=== PATIENT | female | born 1960 ===

== ENCOUNTER 2017-01-27 10:45 | Day surgery (SDC) | payer MEDICAID ==
[2017-01-27] MEDS ORDERED: Lactated Ringer's 500 ML IV ONE (11:05)
[2017-01-27 11:23] VITALS: O2SAT 100
[2017-01-27] MEDS ORDERED: Midazolam 2 MG/2 ML VIAL ONE (12:01)
[2017-01-27] MEDS ORDERED: Propofol 10 mg/ml Inj (20 ML) ONE (12:01)
[2017-01-27 12:20] VITALS: TEMP 97
[2017-01-27 12:31] VITALS: BP 111/70; PULSE 73; RESP 15
== END 2017-01-27 12:42 | disposition home or self-care (01) ==
LOC: H.ENDO 10:45
PROVIDERS: ATTEND Internal Medicine Gastroenterology
DX: Z12.11 Encounter for screening for malignant neoplasm of colon (principal); K64.8 Other hemorrhoids; G43.909 Migraine, unspecified, not intractable, without status migrainosus; Z90.710 Acquired absence of both cervix and uterus; Z98.51 Tubal ligation status; Z82.49 Family history of ischemic heart disease and other diseases of the circulatory system; Z88.0 Allergy status to penicillin

== ENCOUNTER 2018-06-14 13:19 | Emergency (ER) | payer MEDICAID ==
[2018-06-14 13:45] VITALS: RESP 18; O2SAT 99
--- NOTE | 2018-06-14 14:55 | ED PDOC ---
HPI: Eye Injury/Pain Time Seen by Provider: 06/14/18 13:47 Chief Complaint (Nursing): Eye Problem Chief Complaint (Provider): Left orbital pain and swelling History Per: Patient, Hull Molder ([id number]) History/Exam Limitations: no limitations Onset/Duration Of Symptoms: Days Current Symptoms Are (Timing): Still Present Quality: Pressure Associated Symptoms: Pain, Swelling, Itching. denies: Decreased Vision, FB Sensation, Discharge From Eye Additional Complaint(s): 58 year old female presents to the ED for evaluation of left orbital pain and swelling. Patient states she had discomfort and itchiness last night. This morning the area around her eye was swollen and is tender to touch so she applied ice without any relief. 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 She describes the pain as pressure-like and "hot". She also admits she wears glasses, but denies use of contacts. Otherwise, patient denies fever/chills, foreign body sensation, changes in vision, trauma to the eye, pain with eye movement, mucus discharge, or any other complaints. PMD: clinic mysql dba: Dr. Zamudio ([facility]) Past Medical History Reviewed: Historical Data, Nursing Documentation, Vital Signs Vital Signs: Last Vital Signs Temp 98.2 F 06/14/18 13:43 Pulse 84 06/14/18 13:43 Resp 18 06/14/18 13:43 BP 120/75 06/14/18 13:43 Pulse Ox 99 06/14/18 13:43 - Medical History PMH: Arthritis - Surgical History Other surgeries: tubal ligation, hysterectomy - Family History Family History: States: Unknown Family Hx - Social History Current smoker - smoking cessation education provided: No - Home Medications Home Medications: Ambulatory Orders Medication Instructions Recorded RX: Clindamycin [Cleocin] 300 mg PO TID #21 cap 06/14/18 RX: Erythromycin 0.5% 1 applic OS Q4 #1 tube 06/14/18 [Erythromycin] RX: Naproxen 500 mg PO BID PRN #20 tab 06/14/18 - Allergies Allergies/Adverse Reactions: Allergies Allergy/AdvReac Type Severity Reaction Status Date / Time Penicillins Allergy RASH Verified 07/09/16 10:03 Review of Systems ROS Statement: Except As Marked, All Systems Reviewed And Found Negative Constitutional: Negative for: Fever Eyes: Positive for: Pain (left eye), Eyelid Inflammation (left eye). Negative for: Vision Change ENT: Negative for: Ear Pain, Throat Pain Cardiovascular: Negative for: Chest Pain Respiratory: Negative for: Cough, Shortness of Breath Neurological: Positive for: Headache. Negative for: Weakness, Numbness Physical Exam - Reviewed Nursing Documentation Reviewed: Yes Vital Signs Reviewed: Yes - Physical Exam Comments: GENERAL APPEARANCE: Patient is awake, alert, oriented x 3, in no acute distress, resting comfortably. HEART AND CARDIOVASCULAR: (-) irregularity CHEST AND RESPIRATORY: (-) rales, (-) rhonchi, (-) wheezes; breath sounds equal. Respirations even and nonlabored. NECK: Supple, FROM VISUAL ACUITIES: Left eye: 20/20; Right eye: 20/20; Bilateral: 20/20. LIDS & LASHES: (-) crusting of eyelashes (-) mucus discharge ORBIT: (+) edema, warmth, tenderness to the left lower eyelid and the inferior aspect of left eye orbit. PUPILS: Pupils equal and reactive. EOM's: Intact and painless LID EVERSION: (-) foreign body. CONJUNCTIVAE: (-) chemosis (-) conjunctival injection ANTERIOR CHAMBER: (-) foreign body (-) hyphema NEURO AND PSYCH: Mental status as above. Affect: appropriate. Gait: steady. Speech: clear. (-) aphasia - Laboratory Results Result Diagrams: 06/14/18 14:54 06/14/18 14:54 - ECG O2 Sat by Pulse Oximetry: 99 (RA) Pulse Ox Interpretation: Normal Medical Decision Making Medical Decision Making: Time: 1345 Initial impression: acute orbital pain and swelling, r/o orbital cellulitis Initial plan: Orbits/facials w/o contrast CT BMP CBC w/ differential Toradol 30mg IVP IV insertion Reevaluation 1520 PROCEDURE: CT ORBITS WITHOUT CONTRAST. HISTORY: r/o orbital cellulitis, left eye orbit COMPARISON: None available. TECHNIQUE: Axial CT images of the orbits were obtained. Coronal and sagittal reformats were generated. Radiation dose: Total exam DLP = 730.88 mGy-cm. This CT exam was performed using one or more of the following dose reduction techniques: Automated exposure control, adjustment of the mA and/or kV according to patient size, and/or use of iterative reconstruction technique. FINDINGS: RIGHT ORBIT: RIGHT BONY ORBIT: Normal. RIGHT INTRAORBITAL STRUCTURES: Globe: Normal. Extraocular muscles: Normal. Post septal space: Normal. Optic Nerve: Normal. Lacrimal Apparatus: Normal. RIGHT PRESEPTAL SOFT TISSUES: Normal LEFT ORBIT: LEFT BONY ORBIT: Normal. LEFT INTRAORBITAL STRUCTURES: Globe: Normal. Extraocular muscles: Normal. Post septal space: Normal Optic Nerve: Normal. . Lacrimal Apparatus: Normal. LEFT PRESEPTAL SOFT TISSUES: There is mild infraorbital and pre maxillary soft tissue swelling and subcutaneous fat stranding. No evidence of preseptal or postseptal cellulitis. OTHER: There fluid in the right sphenoid chamber. The remaining included paranasal sinuses are well developed and well aerated without mucosal thickening or fluid. IMPRESSION: 1. Mild left infra orbital cellulitis. No evidence for preseptal or postseptal orbital cellulitis however please note CT scan of the orbits with intravenous contrast is the examination of choice for definitive evaluation of orbital cellulitis. 2. Fluid in the right sphenoid chamber may represent acute sinusitis in the appropriate clinical setting. Labs reviewed and grossly unremarkable. No elevation of WBCs. Case discussed with Dr. Ivey who agrees with the treatment for periorbital cellulitis with clindamycin 300mg PO and erythromycin ointment. 1630 On re-evaluation, patient reports improvement of symptoms. On exam, patient remains AAOx3, in no acute distress. Vitals stable. Lab/Diagnostic results d/w the patient in great detail. Diagnosis of orbital cellulitis d/w the patient. Return parameters discussed. Based on history, exam and diagnostic results, plan will be for outpatient follow up with ophtho/PMD within 48 hours. Patient instructed to follow-up with pmd / referral provided / the clinic in 1- 2 days without fail. Advised to take medication as prescribed. Return to the emergency room at any time for any new or worsening symptoms. Patient states she fully agrees with and understands discharge instructions. States that she agrees with the plan and disposition. Verbalized and repeated discharge instructions and plan. I have given the patient opportunity to ask any additional questions. Scribe Attestation: Documented by Jamil Ortiz, acting as a scribe for Diana Caballero PA-C. Provider Scribe Attestation: All medical record entries made by the Scribe were at my direction and personally dictated by me. I have reviewed the chart and agree that the record accurately reflects my personal performance of the history, physical exam, medical decision making, and the department course for this patient. I have also personally directed, reviewed, and agree with the discharge instructions and disposition. Disposition - Clinical Impression Clinical Impression: Orbital cellulitis on left, Orbital swelling - Patient ED Disposition Is Patient to be Admitted: No Counseled Patient/Family Regarding: Studies Performed, Diagnosis, Need For Followup, Rx Given - Disposition Referrals: Kali Wagner MD [Staff Provider] - Robb Osborne [Other] Disposition: Routine/Home Disposition Time: 16:30 Condition: STABLE Additional Instructions: La atencin mdica de emergencia que recibi hoy se dirigi a carlton sntomas agudos. Si le recetaron algn medicamento, llnelo y tmelo segn las indicaciones. Los sntomas pueden tardar varios royal en resolverse. Regrese al Departamento de Emergencias si carlton sntomas empeoran, no mejoran o si tiene otros problemas. Comunquese con pendleton mdico dentro de 2 royal para manuel nueva evaluacin y tyler un seguimiento o llame a howard de los mdicos / clnicas a los que mcdaniel sido referido y que figuran en el formulario de Informacin de visita al paciente que se incluye en pendleton paquete de vinnie. Lleve todos los documentos que le entregaron al momento del vinnie junto con todos los medicamentos que est tomando para pendleton visita de seguimiento. Nuestro tratamiento no puede reemplazar la atencin mdica continua por parte de un proveedor de atencin primaria (PCP) fuera del d epartamento de emergencias. Prescriptions: RX: Clindamycin [Cleocin] 300 mg PO TID #21 cap RX: Erythromycin 0.5% [Erythromycin] 1 applic OS Q4 #1 tube RX: Naproxen 500 mg PO BID PRN #20 tab PRN Reason: pain, inflammation Instructions: Orbital Cellulitis, Cellulitis (Skin Infection), Adult (DC) Forms: [employer] (Italian) Print Language: LAO - POA Present On Arrival: None Results - Lab Results Lab Results: 06/14/18 06/14/18 14:54 14:54 WBC 7.4 RBC 4.18 Hgb 13.1 Hct 40.2 MCV 96.1 MCH 31.3 H MCHC 32.6 L RDW 14.0 Plt Count 249 MPV 9.0 Neut % (Auto) 79.3 H Lymph % (Auto) 15.0 L [place] % (Auto) 4.9 Eos % (Auto) 0.4 Baso % (Auto) 0.4 Neut # (Auto) 5.9 Lymph # (Auto) 1.1 [place] # (Auto) 0.4 Eos # (Auto) 0.0 Baso # (Auto) 0.0 Sodium 140 Potassium 4.4 Chloride 101 Carbon Dioxide 28 Anion Gap 15 BUN 12 Creatinine 0.7 Est GFR ( Amer) > 60 Est GFR (Non-Af Amer) > 60 Random Glucose 83 Calcium 9.2
[2018-06-14 15:00] LABS: BASO % 0.4 % (0.0-2.0); EOS % 0.4 % (0.0-4.0); HEMOGLOBIN 13.1 g/dL (12.0-16.0); LYMPH # 1.1 K/uL (1.0-4.3); MEAN CELL VOLUME 96.1 fl (81.0-99.0); MEAN CORPUSCULAR HEMOGLOBIN 31.3 pg (27.0-31.0); MEAN CORPUSCULAR HGB CONC 32.6 g/dL (33.0-37.0); MONO # 0.4 K/uL (0.0-0.8); MONO % 4.9 % (0.0-10.0); NEUT # 5.9 K/uL (1.8-7.0); NEUT % 79.3 % (50.0-75.0); NRBC % 0.1 % (0.0-0.0); RBC 4.18 Mil/uL (3.80-5.20); WHITE BLOOD COUNT 7.4 K/uL (4.8-10.8)
[2018-06-14 15:11] LABS: BLOOD UREA NITROGEN 12 mg/dl (7-17); CALCIUM 9.2 mg/dL (8.4-10.2); GFR NON-AFRICAN AMERICAN > 60
--- NOTE | 2018-06-14 15:19 | CT ---
Date of service: 06/14/2018 PROCEDURE: CT ORBITS WITHOUT CONTRAST. HISTORY: r/o orbital cellulitis, left eye orbit COMPARISON: None available. TECHNIQUE: Axial CT images of the orbits were obtained. Coronal and sagittal reformats were generated. Radiation dose: Total exam DLP = 730.88 mGy-cm. This CT exam was performed using one or more of the following dose reduction techniques: Automated exposure control, adjustment of the mA and/or kV according to patient size, and/or use of iterative reconstruction technique. FINDINGS: RIGHT ORBIT: RIGHT BONY ORBIT: Normal. RIGHT INTRAORBITAL STRUCTURES: Globe: Normal. Extraocular muscles: Normal. Post septal space: Normal. Optic Nerve: Normal. Lacrimal Apparatus: Normal. RIGHT PRESEPTAL SOFT TISSUES: Normal LEFT ORBIT: LEFT BONY ORBIT: Normal. LEFT INTRAORBITAL STRUCTURES: Globe: Normal. Extraocular muscles: Normal. Post septal space: Normal Optic Nerve: Normal. . Lacrimal Apparatus: Normal. LEFT PRESEPTAL SOFT TISSUES: There is mild infraorbital and pre maxillary soft tissue swelling and subcutaneous fat stranding. No evidence of preseptal or postseptal cellulitis. OTHER: There fluid in the right sphenoid chamber. The remaining included paranasal sinuses are well developed and well aerated without mucosal thickening or fluid. IMPRESSION: 1. Mild left infra orbital cellulitis. No evidence for preseptal or postseptal orbital cellulitis however please note CT scan of the orbits with intravenous contrast is the examination of choice for definitive evaluation of orbital cellulitis. 2. Fluid in the right sphenoid chamber may represent acute sinusitis in the appropriate clinical setting.
[2018-06-14] MEDS ORDERED: Erythromycin 0.5% Ophth Oint 1 APPLIC/3.5 G OS ONE (15:20)
[2018-06-14 16:32] VITALS: BP 128/78; PULSE 78; TEMP 98.4
== END 2018-06-14 16:55 | disposition home or self-care (01) ==
LOC: H.ER 13:19
DX: H05.012 Cellulitis of left orbit (principal); Z88.0 Allergy status to penicillin; Z90.710 Acquired absence of both cervix and uterus
CPT/HCPCS: 70480; 80048; 85025; 96374; 99283; J1885